=== PATIENT | male | born 1995 | race Asian ===

== ENCOUNTER 2018-07-15 12:02 | Emergency (ER) | payer OTHER ==
[2018-07-15] MEDS ORDERED: Ondansetron ODT TAB* 4 MG PO ONE (13:24)
[2018-07-15] MEDS ORDERED: Famotidine TAB* 20 MG PO ONE (13:24)
[2018-07-15] MEDS ORDERED: Al Hydrox/Mg Hydrox/Simet LIQ* 30 ML UDC PO ONE (13:24)
--- NOTE | 2018-07-15 13:57 | ED ---
Throat Pain/Nasal Congestion - HPI Summary HPI Summary: This patient is a 22 year old M presenting to [facility] accompanied by a woman with a chief complaint of intermittent vomiting since last night. Patient reports nausea, chills, and dizziness. Patient denies diarrhea, fever, throat pain, abd pain, CP, or SOB. The patient had one beer and four vodka drinks last night. He came to the ED because he was worried he saw blood in his vomit this morning. The patient had one episode of emesis while in the ED and three episodes in total. He ate crackers this morning but feels the need to vomit after some time. Vitals in the room: HR 66 bpm, BP 105/71. - History of Current Complaint Chief Complaint: EDNauseaVomitDiarrh Time Seen by Provider: 07/15/18 13:47 Hx Obtained From: Patient Onset/Duration: Sudden Onset, Lasting Hours - Allergies/Home Medications Allergies/Adverse Reactions: Allergies Allergy/AdvReac Type Severity Reaction Status Date / Time No Known Allergies Allergy Verified 07/15/18 12:11 Home Medications: Home Medications Cetirizine* [ZyrTEC 10 MG TAB*] 10 mg PO DAILY 07/15/18 [History Confirmed 07/15] PMH/Surg Hx/FS Hx/Imm Hx Endocrine/Hematology History: Reports: Other Endocrine/Hematological Disorders - chronic hives History: Denies: Hx Dialysis Infectious Disease History: No Infectious Disease History: Denies: Traveled Outside the [place] in Last 30 Days - Family History Known Family History: Positive: Non-Contributory - Social History Occupation: Student Alcohol Use: Occasionally Hx Tobacco Use: No Review of Systems Positive: Chills. Negative: Fever Negative: Sore Throat Negative: Chest Pain Negative: Shortness Of Breath Positive: Vomiting, Nausea. Negative: Abdominal Pain, Diarrhea Neurological: Other - dizziness All Other Systems Reviewed And Are Negative: No Physical Exam - Summary Physical Exam Summary: Appearance: well appearing, no pain distress Skin: warm, dry, reflects adequate perfusion Head/face: normal Eyes: EOMI, CASSANDRA ENT: mucous membranes moist Neck: supple, non-tender Respiratory: CTA, breath sounds present Cardiovascular: RRR, pulses symmetrical Abdomen: non-tender, soft Bowel Sounds: present Musculoskeletal: normal, strength/ROM intact Neuro: normal, sensory motor intact, A&Ox3 Triage Information Reviewed: Yes Vital Signs On Initial Exam: Initial Vitals Temp Pulse Resp BP Pulse Ox 97.7 F 77 16 121/66 98 07/15/18 12:08 07/15/18 12:08 07/15/18 12:08 07/15/18 12:08 07/15/18 12:08 Vital Signs Reviewed: Yes Diagnostics - Vital Signs Vital Signs Temp Pulse Resp BP Pulse Ox 07/15/18 12:08 97.7 F 77 16 121/66 98 - Laboratory Lab Statement: Any lab studies that have been ordered have been reviewed, and results considered in the medical decision making process. EENT Course/Dx - Course Course Of Treatment: Patient with heavy drinking a vodka last night, located by GI upset and harsh retching this morning. This is likely caused by gastritis and/or Alana-Marinelli tear. He is asymptomatic after GI treatments here. He was able to eat and drink. He'll be discharged on similar GI meds and follow- up with [facility]. - Differential Diagnoses Differential Diagnoses: Other - Alana-Marinelli, Boerhaave syndrome, peptic ulcer disease, gastritis - Diagnoses Provider Diagnoses: Alana-Marinelli syndrome, Alcoholic gastritis Discharge - Sign-Out/Discharge Documenting (check all that apply): Patient Departure - discharge Patient Received Moderate/Deep Sedation with Procedure: No - Discharge Plan Condition: Improved Disposition: HOME Prescriptions: Famotidine TAB* [Pepcid 20 MG TAB*] 20 mg PO BID #20 tab Ondansetron ODT TAB* [Zofran 4 MG Odt TAB*] 4 mg PO Q8H PRN #10 tab.odt PRN Reason: Nausea Sucralfate TAB* [Carafate*] 1 gm PO QID #40 tab Patient Education Materials: Gastritis (ED), Alana-Marinelli Syndrome (ED) Referrals: [facility] [Provider Group] Additional Instructions: Avoid alcohol, anti-inflammatory medication such as Aleve or ibuprofen, caffeine and any hot or spicy foods. Take medication until well. Do not binge on alcohol. Return if worse, new symptoms or other concerns. Follow-up with [facility]. - Billing Disposition and Condition Condition: IMPROVED Disposition: Home - Attestation Statements Document Initiated by Scribe: Yes Documenting Scribe: Rudi Dyson Provider For Whom Scribe is Documenting (Include Credential): Pacheco Hassan MD Scribe Attestation: I, Rudi Dyson, scribed for Pacheco Hassan MD on 07/15/18 at 1834. Scribe Documentation Reviewed: Yes Provider Attestation: The documentation as recorded by the scribe, Rudi Dyson accurately reflects the service I personally performed and the decisions made by me, Pacheco Hassan MD Status of Scribe Document: Viewed
[2018-07-15 14:52] VITALS: BP 121/69
== END 2018-07-15 14:50 | disposition home or self-care (01) ==
LOC: ED 12:02
DX: K29.20 Alcoholic gastritis without bleeding (principal); K22.6 Gastro-esophageal laceration-hemorrhage syndrome
CPT/HCPCS: 99283; A9270-GY